=== PATIENT | female | born 1960 | race Caucasian/White ===

== ENCOUNTER 2017-01-17 10:28 | Day surgery (SDC) | payer MEDICARE ==
[2017-01-16 15:43] VITALS: BMI 47.4
[2017-01-17] MEDS ORDERED: Midazolam HCl 2 mg/2 ml Vial ONE (12:08)
[2017-01-17] MEDS ORDERED: Fentanyl 100 MCG/2 ML VIAL ONE (13:34)
--- NOTE | 2017-01-17 15:13 | OP ---
DATE OF PROCEDURE: 01/17/2017 PROCEDURE: Colonoscopy with snare polypectomy. SURGEON: Diego Arnett M.D. PREOPERATIVE DIAGNOSES: History of colon polyps and family history of colon cancer in her mother. OPERATIVE NOTE: Informed consent was obtained from the patient. The patient was sedated with total intravenous anesthesia. The rectal exam was performed and was normal. The colonoscope was advanced to the transverse colon. The colonoscope could not be passed further due to significant looping in t he colon. A 5 mm polyp was removed from the descending colon by snare cautery polypectomy. A 7 mm p olyp was removed from the sigmoid colon by snare cautery polypectomy. Two polyps measuring 3-4 mm we re removed from the rectum by cold snare polypectomy. Retroflexed views in the rectum were unremarka ble. The preparation quality was good. IMPRESSION: 1. A 5 mm descending polyp removed by hot snare. 2. A 7 mm sigmoid polyp removed by hot snare. 3. Two polyps measuring 3-4 mm were removed from the rectum by cold snare. 4. Incomplete colonoscopy to the transverse colon. The colon was dilated and there was significant looping in the left colon. The patient was turned to her back and to her right side, but still the c olonoscope could not be advanced beyond that point. RECOMMENDATIONS: 1. Await histopathology. 2. Repeat colonoscopy in 2 years.
[2017-01-17] MEDS ORDERED: Lidocaine 1% PF 5 ML VIAL ONE (15:14)
[2017-01-17] MEDS ORDERED: Propofol 200 MG/20 ML VIAL ONE (15:14)
== END 2017-01-17 15:14 | disposition home or self-care (01) ==
LOC: SDC 10:28
PROVIDERS: ATTEND Internal Medicine Gastroenterology
PROC: 0DBM8ZX Excision of Descending Colon, Via Natural or Artificial Opening Endoscopic, Diagnostic (ICD-10-PCS; principal; 2017-01-17)
PROC: 0DBN8ZX Excision of Sigmoid Colon, Via Natural or Artificial Opening Endoscopic, Diagnostic (ICD-10-PCS; 2017-01-17)
PROC: 0DBP8ZX Excision of Rectum, Via Natural or Artificial Opening Endoscopic, Diagnostic (ICD-10-PCS; 2017-01-17)
DX: D12.4 Benign neoplasm of descending colon (principal); K63.5 Polyp of colon; K62.1 Rectal polyp; F41.9 Anxiety disorder, unspecified; J45.909 Unspecified asthma, uncomplicated; E07.9 Disorder of thyroid, unspecified; K58.9 Irritable bowel syndrome, unspecified; M10.9 Gout, unspecified; F17.290 Nicotine dependence, other tobacco product, uncomplicated; F32.9 Major depressive disorder, single episode, unspecified; Z79.899 Other long term (current) drug therapy; Z91.038 Other insect allergy status; Z96.653 Presence of artificial knee joint, bilateral; Z98.51 Tubal ligation status; Z98.890 Other specified postprocedural states; Z86.010 Personal history of colon polyps; Z80.0 Family history of malignant neoplasm of digestive organs
CPT/HCPCS: 88305; J2001; J2250; J2704; J3010

== ENCOUNTER 2017-06-26 15:00 | Outpatient (CLI) | payer MEDICARE | END 2017-06-26 15:01 | disposition home or self-care (01) | LOC: BICMAMMO 15:00 | PROVIDERS: ATTEND Family Medicine | DX: Z12.31 Encounter for screening mammogram for malignant neoplasm of breast (principal); M54.9 Dorsalgia, unspecified; M85.80 Other specified disorders of bone density and structure, unspecified site; S33.5XXA Sprain of ligaments of lumbar spine, initial encounter; M47.896 Other spondylosis, lumbar region | CPT/HCPCS: 72100; 77063; 77067; 77080 ==